=== PATIENT | male | born 1955 | race Caucasian/White ===

== ENCOUNTER 2021-06-04 00:25 | Emergency (ER) | payer BC ==
[~2021-06-04] VITALS: Ht 175.3 cm; Wt 84.1 kg
[2021-06-04] MEDS ORDERED: normal saline 1000ml 1,000 ML IV ONE (01:10)
[2021-06-04] MEDS ORDERED: morphine 4 MG/ML inj SYRINge IV ONE (01:15)
[2021-06-04] MEDS ORDERED: ondansetron/PF 4mg/2ml inj IV ONE (01:15)
[2021-06-04 01:48] LABS: ALANINE AMINOTRANSFERASE 25 U/L (12-78); ALBUMIN 3.7 G/DL (3.4-5.0); ALBUMIN/GLOBULIN RATIO 1.2 (1.1-1.5); ALKALINE PHOSPHATASE 62 IU/L (46-116); ANION GAP 11 (8-16); ASPARTATE AMINO TRANSFERASE 24 U/L (10-37); BILIRUBIN,TOTAL 0.8 MG/DL (0.1-1.0); BLOOD UREA NITROGEN 27 MG/DL (7-18); BUN/CREATININE RATIO 25.5 (5.4-32.0); CALCIUM 8.8 MG/DL (8.5-10.1); CHLORIDE 102 MMOL/L (99-107); CREATININE 1.06 MG/DL (0.60-1.10); GLUCOSE 149 MG/DL (70-104); POTASSIUM 3.2 MMOL/L (3.5-5.1); SODIUM 139 MMOL/L (135-145); TOTAL CARBON DIOXIDE 25.6 MMOL/L (24-32); TOTAL PROTEIN 6.9 G/DL (6.4-8.2); eGFR 70 ML/MIN
[2021-06-04 01:51] LABS: LIPASE 420 U/L (73-393)
[2021-06-04 02:24] LABS: BASOPHILS % (AUTO) 0.2 % (0-1); EOSINOPHILS # (AUTO) 0.1 X10'3 (0-0.9); EOSINOPHILS % (AUTO) 0.9 % (0-6); HEMATOCRIT 43.5 % (42.0-52.0); HEMOGLOBIN 14.9 g/dl (14.0-17.9); LYMPHOCYTES # (AUTO) 1.2 X10'3 (1.1-4.8); LYMPHOCYTES % (AUTO) 10.3 % (21-51); MEAN CORPUSCULAR HGB CONC 34.3 g/dL (33.0-36.5); MEAN CORPUSCULAR VOLUME 90.4 FL (78-98); MEAN PLATELET VOLUME 9.7 FL (7.4-10.4); MONOCYTES # (AUTO) 0.5 X10'3 (0-0.9); MONOCYTES % (AUTO) 4.3 % (2-12); NEUTROPHILS # (AUTO) 9.9 X10'3 (1.8-7.7); NEUTROPHILS % (AUTO) 84.3 % (42-75); PLATELET COUNT 221 X10'3 (140-440); RED BLOOD COUNT 4.81 X10'6 (4.70-6.10); RED CELL DISTRIBUTION WIDTH 13.3 % (11.5-14.5); WHITE BLOOD COUNT 11.7 X10'3 (4.5-11.0)
[2021-06-04 02:42] LABS: CLARITY,URINE CLEAR (Clear); COLOR,URINE YELLOW (Yellow); GLUCOSE, URINE NEGATIVE (Neg); KETONES,URINE 15 mg/dl (Neg); LEUKOCYTE ESTERASE ,URINE NEGATIVE (Neg); NITRITES, URINE NEGATIVE (Neg); OCCULT BLOOD,URINE NEGATIVE (Neg); PROTEIN,URINE NEGATIVE (Neg); UROBILINOGEN,URINE 0.2 E.U/dL (0.2-1.0)
[2021-06-04 02:44] LABS: UA COLLECTION TYPE URINAL
[2021-06-04] MEDS ORDERED: famotidine/PF 10 mg/ml inj IV ONE (05:35)
[2021-06-04] MEDS ORDERED: bisacodyl 5mg tablet.DR PO ONE (05:35)
[2021-06-04] MEDS ORDERED: pantoprazole 40MG/NS 100ML BAG 100 ML IV ONE (05:35)
[2021-06-04] MEDS ORDERED: BISA-78 PO (05:36)
[2021-06-04] MEDS ORDERED: PANT-47 PO ×2 (05:36→06:39)
[2021-06-04] MEDS ORDERED: ONDA8TAB13 PO ×2 (05:36→06:39)
--- NOTE | 2021-06-04 06:35 | NUR ---
First contact with pt. Pt. sitting up in bed with no distress.
[2021-06-04] MEDS ORDERED: BISA-155 PO (06:39)
[2021-06-04 06:44] VITALS: BP 154/104
--- NOTE | 2021-06-04 06:50 | NUR ---
Pt. ambulated to and from restroom with no issues.
== END 2021-06-04 07:00 | disposition home or self-care (01) ==
LOC: ER 00:26
DX: K29.70 Gastritis, unspecified, without bleeding (principal); R11.0 Nausea; R10.84 Generalized abdominal pain; Z79.899 Other long term (current) drug therapy
CPT/HCPCS: 36415; 74176; 80053; 81003; 83690; 84484; 85025; 96361; 96374; 96375; 99285; C9113; J2270; J2405; J3490; J7030